=== PATIENT | female | born 1965 | race Caucasian/White ===

== ENCOUNTER 2017-09-07 05:10 | Emergency (ER) | payer OTHER ==
[2017-09-07] MEDS ORDERED: Aspirin 81 MG Tab.Chew PO ONE (05:37)
--- NOTE | 2017-09-07 05:47 | EDM.PDOC ---
ED HPI GENERAL MEDICAL PROBLEM - General Chief Complaint: Chest Pain Stated Complaint: chest pain Time Seen by Provider: 09/07/17 05:23 Source of Information: Reports: Patient, RN Notes Reviewed - History of Present Illness INITIAL COMMENTS - FREE TEXT/NARRATIVE: 52-year-old lady comes in with intermittent chest pain for about the past 3 days. She states these have been somewhat sharp shooting pains areas areas of her left anterior chest which first started about 3 days ago. She's had very occasional discomfort of this nature in the past but over the past 3 days this is been somewhat frequent and quite repetitive. She states it has awakened her each of the last 3 nights somewhere around 2 to 4:00 in the morning. When she does get the discomfort it is relatively brief usually less than 1 minute in duration. She has had occasional radiation into the back but that also does not last. With deep breathing. She has not been coughing. No fever or chills. Does have history of hypertension, is not diabetic and no known history for coronary artery disease. No abdominal pain nausea vomiting or diaphoresis. Chest Pain Score (Numeric/FACES): 6 - Related Data Allergies Allergy/AdvReac Type Severity Reaction Status Date / Time sulfamethoxazole Allergy Hives Verified 12/13/16 08:48 [From Bactrim] trimethoprim [From Bactrim] Allergy Hives Verified 12/13/16 08:48 Home Meds: Home Meds Estrodial 1 mg PO DAILY 05/02/15 [History] FLUoxetine [PROzac] 60 mg PO DAILY 05/02/15 [History] Levothyroxine [Synthroid] 88 mcg PO DAILY 05/02/15 [History] Lisinopril/Hydrochlorothiazide [Lisinopril-Hctz 20-12.5 mg Tab] 1 tab PO DAILY 05/02/15 [History] Potassium Chloride 10 meq PO DAILY #14 cap.er 09/07/17 [Rx] Past Medical History HEENT History: Reports: Sinusitis Cardiovascular History: Reports: Hypertension Psychiatric History: Reports: Depression Endocrine/Metabolic History: Reports: Hypothyroidism - Past Surgical History Female Surgical History: Reports: Hysterectomy Social & Family History - Family History Family Medical History: Noncontributory - Tobacco Use Smoking Status *Q: Current Every Day Smoker Years of Tobacco use: 20 Packs/Tins Daily: 0.1 - Caffeine Use Caffeine Use: Reports: Coffee, Energy Drinks - Alcohol Use Days Per Week of Alcohol Use: 7 Number of Drinks Per Day: 1 Total Drinks Per Week: 7 - Recreational Drug Use Recreational Drug Use: No ED ROS GENERAL - Review of Systems Review Of Systems: See Below HEENT: Denies: Sinus Problem, Throat Pain Respiratory: Denies: Shortness of Breath, Wheezing, Pleuritic Chest Pain, Cough Cardiovascular: Reports: Chest Pain GI/Abdominal: Denies: Abdominal Pain, Nausea, Vomiting Musculoskeletal: Denies: Joint Pain Skin: Reports: No Symptoms Neurological: Reports: No Symptoms ED EXAM, GENERAL - Physical Exam Exam: See Below General Appearance: Alert, No Apparent Distress Eye Exam: Bilateral Eye: PERRL Throat/Mouth: Normal Inspection, Normal Oropharynx Head: Atraumatic. No: Facial Swelling Neck: Supple, Full Range of Motion Respiratory/Chest: No Respiratory Distress, Lungs Clear, Normal Breath Sounds, Chest Non-Tender Cardiovascular: Regular Rate, Rhythm GI/Abdominal: Soft, Non-Tender. No: Guarding Extremities: Normal Inspection. No: Pedal Edema, Leg Pain Neurological: Alert, Oriented, No Motor/Sensory Deficits Skin Exam: Warm, Dry, Normal Color EKG INTERPRETATION EKG Date: 09/07/17 Rhythm: NSR [place]: Normal P-Wave: Present QRS: Other (Left anterior fascicular block) ST-T: Normal Course - Vital Signs Last Recorded V/S: Last Vital Signs Temp 96.6 F 09/07/17 05:13 Pulse 81 09/07/17 05:13 Resp 16 09/07/17 05:13 BP 125/71 09/07/17 05:13 Pulse Ox 99 09/07/17 05:13 - Orders/Labs/Meds Orders: Active Orders 24 hr Category Date Time Status EKG 12 Lead [EKG Documentation Completion] [RC] STAT Care 09/07/17 05:24 Active Labs: Laboratory Tests 09/07/17 09/07/17 09/07/17 Range/Units 05:45 05:45 07:36 WBC 5.29 (3.98-10.04) K/mm3 RBC 4.09 (3.98-5.22) M/mm3 Hgb 12.5 (11.2-15.7) gm/L Hct 37.5 (34.1-44.9) % MCV 91.7 (79.4-94.8) fl MCH 30.6 (25.6-32.2) pg MCHC 33.3 (32.2-35.5) g/dl RDW Std Deviation 41.8 (36.4-46.3) fL Plt Count 427 H (182-369) K/mm3 MPV 8.9 L (9.4-12.3) fl Neut % (Auto) 51.4 (34.0-71.1) % Lymph % (Auto) 35.9 (19.3-51.7) % [place] % (Auto) 7.4 (4.7-12.5) % Eos % (Auto) 4.5 (0.7-5.8) Baso % (Auto) 0.6 (0.1-1.2) % Neut # (Auto) 2.72 (1.56-6.13) K/mm3 Lymph # (Auto) 1.90 (1.18-3.74) K/mm3 [place] # (Auto) 0.39 H (0.24-0.36) K/mm3 Eos # (Auto) 0.24 (0.04-0.36) K/mm3 Baso # (Auto) 0.03 (0.01-0.08) K/mm3 Sodium 145 (136-145) mEq/L Potassium 3.1 L (3.5-5.1) mEq/L Chloride 102 (98-107) mEq/L Carbon Dioxide 37 H (21-32) mEq/L Anion Gap 9.1 (5-15) BUN 17 (7-18) mg/dL Creatinine 0.7 (0.55-1.02) mg/dL Est Cr Clr Drug Dosing 80.26 mL/min Estimated GFR (MDRD) > 60 (>60) mL/min BUN/Creatinine Ratio 24.3 H (14-18) Glucose 114 H (74-106) mg/dL Calcium 8.2 L (8.5-10.1) mg/dL Total Bilirubin 0.2 (0.2-1.0) mg/dL AST 23 (15-37) U/L ALT 26 (14-59) U/L Alkaline Phosphatase 52 (46-116) U/L Troponin I < 0.017 < 0.017 (0.00-0.056) ng/mL Total Protein 6.7 (6.4-8.2) g/dl Albumin 3.2 L (3.4-5.0) g/dl Globulin 3.5 gm/dL Albumin/Globulin Ratio 0.9 L (1-2) Meds: Medications Discontinued Medications Generic Name Dose Route Start Last Admin Trade Name David PRN Reason Stop Dose Admin Aspirin 324 mg 09/07/17 05:37 09/07/17 05:42 Aspirin PO 09/07/17 05:38 324 mg ONETIME ONE Administration Potassium Chloride 40 meq 09/07/17 06:42 09/07/17 08:01 Klor-Con M20 PO 09/07/17 06:43 40 meq ONETIME ONE Administration - Re-Assessments/Exams Free Text/Narrative Re-Assessment/Exam: 09/07/17 06:39. Initial troponin did come back negative. EEG looked good. S x- ray also looks good. Potassium was low at 3.1, chemistries otherwise were all relatively normal. We will get her something to eat, give her an oral dose of potassium and then check a 2 hour troponin. 09/07/17 09:10. Repeat troponin did come back negative as well. Patient has been resting comfortably. She is been in sinus rhythm, I have not been a made aware of any ectopy. Discharge instructions as documented Departure - Departure Time of Disposition: 09:05 Disposition: Home, Self-Care 01 Condition: Fair Clinical Impression: Atypical chest pain, Hypokalemia Prescriptions: Potassium Chloride 10 meq PO DAILY #14 cap.er Referrals: Donna Zeng MD [Primary Care Provider] - Forms: ED Department Discharge Additional Instructions: Your potassium today was low at 3.1. As discussed and as you are aware potassium , other fruit and vegetables are sources of potassium. Potatoes are also high in potassium. Potassium supplement has been prescribed, 10 meq daily for about 2 weeks. Follow-up with your regular medical provider in about 5-7 days for recheck, all for appointment this morning. Return to ED as needed if symptoms worsening in any way. - My Orders Last 24 Hours: My Active Orders 09/07/17 05:24 EKG 12 Lead [EKG Documentation Completion] [RC] STAT - Assessment/Plan Last 24 Hours: My Active Orders 09/07/17 05:24 EKG 12 Lead [EKG Documentation Completion] [RC] STAT
[2017-09-07] MEDS ORDERED: Potassium Chloride 20 MEQ Tab.ER PO ONE (06:42)
--- NOTE | 2017-09-07 06:48 | CR ---
Chest: Portable view of the chest was obtained. Comparison: Prior chest x-ray of 05/06/15. Previous nodular density within left base is not seen. Lungs are clear. Heart size and mediastinum are normal. Bony structures are grossly intact. Impression: 1. Nothing acute is identified on portable chest x-ray. When compared to prior study, nodular density seen previously within the left base is no longer present. Diagnostic code #1
[2017-09-07] MEDS ORDERED: Sodium Chloride 0.9% 1,000 ML IV SCH (07:30)
[2017-09-07 09:26] VITALS: BP 103/58
== END 2017-09-07 09:17 | disposition home or self-care (01) ==
LOC: JD.ED 05:10
DX: E87.6 Hypokalemia (principal); R07.89 Other chest pain; I10 Essential (primary) hypertension; F17.210 Nicotine dependence, cigarettes, uncomplicated; Z88.2 Allergy status to sulfonamides; Z88.1 Allergy status to other antibiotic agents; Z79.899 Other long term (current) drug therapy
CPT/HCPCS: 36415; 71045; 80053; 84484; 85025; 93005; 99285; A9270; 93010